=== PATIENT | female | born 1960 | race Caucasian/White ===

== ENCOUNTER 2023-05-10 16:02 | Emergency (ER) | payer OTHER, SELFPAY ==
[2023-05-10 16:04] VITALS: BP 171/119
[2023-05-10 19:18] VITALS: BP 146/96
--- NOTE | 2023-05-10 19:56 | ED.GENMED ---
History of Present Illness
General
Chief Complaint: DVT/Possible Blood Clot
Source: patient
Exam Limitations: none
Time Seen by Provider: 05/10/23 16:48
Nursing documentation reviewed up to this point in time: agreed with
Travel History
Have you had any contact with someone who has COVID-19?: No
Do you have any symptoms of coronavirus? Fever > 100 degrees, chills, cough, shortness of breath, sore throat, loss of taste or smell, muscle aches, or headache?: No
History of Present Illness
History of Present Illness:
62-year-old female with past ministry of hypertension hyperlipidemia, SVT recent cardiac ablation last week presenting to the emergency department today for concerns of left-sided knee discomfort since the procedure. Denies any chest pain shortness
of breath history of blood clots not on blood thinners.
Past History
Past History
ED Past Medical History: HTN and Hypercholesterolemia
ED Past Surgical History: Gynecological and Orthopedic
Social History
Tobacco: Non-smoker
Alcohol: Occasional
Drug: None
Personal:
Living: with family
Employment: Employed
Review of Systems
Review of Systems
Allergies reviewed?: Yes
All Other Systems: ROS reviewed and negative except as documented in HPI and ROS
Phy Exam
Physical Exam
Physical Exam:
GENERAL: Alert , in no apparent distress
EYE: pupils equal and reactive
NECK: Supple, no significant adenopathy.
ENT: o/p clr, mmm.
CARDIAC: Regular rate and rhythm .
LUNGS: Clear breath sounds bilaterally, no acute respiratory distress, no wheezes/rales/rhonchi
ABDOMEN: Soft, without focal tenderness, no r/g, no cvat
NEUROLOGICAL: Alert and oriented, no focal neuro deficits
SKIN: Warm and dry, skin intact.
MUSCULOSKELETAL: Subtle swelling surrounding the left knee mainly anteriorly compared to the right no obvious swelling distally normal-appearing feet bilaterally normal distal pulses normal skin tone good range of motion of all joints including the
hip knee and ankle bilaterally. No redness or warmth, well perfused.
PSYCH: Normal and appropriate interaction.
Course
Orders/Labs/Results
Orders:
Orders
05/10/23 16:48
Venous Doppler Lwr Ext Left [US Periph Venous LOWER Ext LT] Urgent
Comment:
Reason For Exam: left leg swelling pain
05/10/23 19:56
Ricki Wrap Left-Treatment ONCE
Vital Signs
Initial and Last Documented VS:
Initial Vital Signs
Temp Pulse Resp BP Pulse Ox
98.2 F 90 18 171/119 98
05/10/23 16:04 05/10/23 16:04 05/10/23 16:04 05/10/23 16:04 05/10/23 16:04
Last Documented Vital Signs
Temp Pulse Resp BP Pulse Ox
98.2 F 71 18 146/96 100
05/10/23 16:04 05/10/23 19:18 05/10/23 16:04 05/10/23 19:18 05/10/23 19:18
MDM/Problems Addressed
MDM/Problems Addressed:
62-year-old female presenting to the emergency department today with concerns of left-sided knee discomfort after cardiac ablation 1 week ago. She did have full sedation at that time. Pain mainly of the knee pain made worse with movement and
weightbearing of the knee. Clinically this seems most consistent with mechanical injury to the knee potentially during the procedure. Otherwise considering she was sedated we will check ultrasound to rule out DVT. She does have normal distal
pulses without significant diffuse swelling. Ultrasound did not show DVT patient otherwise stable for discharge with likely mechanical pain. Return precautions given.
*Critical Care Note
Total Time (30-74mins, 75-104mins- exclusive of procedures): Not Applicable
ED Attending Note
-
Portions of this chart may have been created with voice recognition software.� Occasional wrong word or��sound alike� substitutions may have occurred due to the inherent limitations of voice recognition software.
Discharge Plan
Departure
Patient Disposition: Home (Routine Discharge)
Date of Disposition: 05/10/23
Time of Disposition: 19:58
Patient with high blood pressure during this ER visit?: No
Condition: Good
Covid-19: Not Applicable
Discharge Problem:
Sprain of knee
Instructions: Knee Sprain ED
Prescriptions:
No Action
ezetimibe [Zetia] 10 mg Tablet
10 mg PO DAILY
lisinopril 5 mg Tablet
5 mg PO DAILY
metoprolol succinate 25 mg tablet extended release 24 hr
25 mg PO DAILY Qty: 90 3RF
Rx Instructions:
Note decreased dose
Referrals:
Demetria Britt MD [Family Provider] -
Activity Restrictions/Additional Instructions:
You came to the emergency department today with concerns of left leg discomfort. Here you had an ultrasound without signs of DVT. This could is likely mechanical discomfort to your knee. Please rest ice compress and elevate over the next few days
and follow close with the primary care doctor. Return to the emergency department for any worsening, new or concerning symptoms.
Interventions
Interventions:
*Risk Screen - Suicide Last Done: 05/10/23 16:04
*General Assessment Last Done: 05/10/23 16:04
*Neglect/Abuse Screening Last Done: 05/10/23 16:04
*ED COVID-19 Vaccine History Last Done: 05/10/23 16:04
ED- Cardiac Assessment Last Done: 05/10/23 16:45
ED- Pulmonary Assessment Last Done: 05/10/23 16:45
ED-Peripheral Vascular Assessment Last Done: 05/10/23 16:45
ED-Skin Assessment Last Done: 05/10/23 16:45
== END 2023-05-10 20:00 | disposition home or self-care (01) ==
LOC: EMR 16:02
PROVIDERS: EMERGENCY PHYSICIAN Emergency Medicine; FAMILY PHYSICIAN Family Medicine
DX: S83.92XA Sprain of unspecified site of left knee, initial encounter (principal); X58.XXXA Exposure to other specified factors, initial encounter
CPT/HCPCS: 99284; 93971

== ENCOUNTER → 2023-05-11 08:53 | Outpatient (REF) | payer OTHER, SELFPAY | LOC: WDC 08:53 | PROVIDERS: ATTENDING PHYSICIAN Family Medicine | DX: R92.2 Inconclusive mammogram (principal); M79.629 Pain in unspecified upper arm | CPT/HCPCS: 76641 ==